=== PATIENT | female | born 1975 | race African-American/Black ===

== ENCOUNTER 2023-10-28 15:25 | Emergency (ER) | payer MEDICAID, SELFPAY ==
--- NOTE | ~2023-10-28 | US_ITS ---
EXAMINATION: US PELVIS CLINICAL INFORMATION: Heavy vaginal bleeding COMPARISON: None available. TECHNIQUE: Ultrasound of the pelvis is performed using both transabdominal and transvaginal transducers along with Doppler. Transvaginal imaging is performed due to inadequate visualization transabdominally. FINDINGS: Uterus: The uterus is anteverted and measures 9.2 x 6.1 x 7.0 cm. Parenchyma is diffusely heterogeneous. Endometrium is difficult to visualize due to the heterogeneous appearance of the uterus. Questionable area measuring 9 mm with some small amount of fluid within the endometrial canal There is a subserosal hypoechoic fibroid in the posterior body measuring 1.3 x 1.1 x 1.7 cm. Adnexa: Both ovaries are visualized. There is normal color flow to the adnexa. There is no ovarian torsion. There is no pelvic ascites or fluid collection. Right ovary measures 4.0 x 1.7 x 1.6 cm. There is a small anechoic cyst/dominant follicle measuring 2.0 x 1.1 x 1.6 cm Left ovary measures 2.3 x 1.3 x 1.6 cm. Visualization is limited. US/US pelvic and transvaginal IMPRESSION: 1. Diffusely heterogeneous uterus with a small subserosal fibroid. Endometrium is difficult to visualize due to the heterogeneous appearance of the uterus. Cannot exclude underlying adenomyosis. Questionable endometrial area measuring 9 mm with some small amount of fluid within the endometrial canal. 2. Right ovary is normal. Left ovary is limited in visualization.
--- NOTE | 2023-10-28 15:41 | ED.FEMALEGU ---
HPI - Female Genitourinary General Chief complaint: Vaginal Bleeding Stated complaint: heavy vaginal bleeding Time Seen by Provider: 10/28/23 19:39 Related Data Previous Rx's ?Medication ?Instructions ?Recorded medroxyprogesterone 10 mg tablet 10 mg PO DAILY #30 tabs 10/28/23 (Provera) Allergies Allergy/AdvReac Type Severity Reaction Status Date / Time latex Allergy Intermediate Rash Verified 10/28/23 15:44 [facility] Social History Social History Smoked in Last 30 Days: No Use of substances other than those prescribed or required for medical reasons: Yes Substance Use Type: Marijuana Substance Use Frequency: Chronic Longstanding Advance Directives: No Advance Directives Information Provided: Yes Do you have a plan to hurt others: No Plan Patient : No Physical Exam Vital Signs: Vital Signs: Last Vital Signs Temp 97.9 F 10/28/23 20:00 Pulse 67 10/28/23 20:00 Resp 18 10/28/23 20:00 BP 105/60 10/28/23 20:00 Pulse Ox 98 10/28/23 20:00 O2 Del Method Room Air 10/28/23 20:00 BMI result Body Mass Index 21.8 Course Course Course Narrative: This is a Rapid Medical Examination (RME) performed by Jimmy Luis PA-C in triage. Full HPI, ROS, assessment and treatment plan per primary provider in the Main ED. 48 yo female presents to the ER for evaluation of heavy vaginal bleeding that started 8/3. Her menstrual cycle usually lasts 7 days but it has gotten worse and she is now on day 11.. Going through 4-5 pads per day. Having regular menstrual cramping, no significant pain. No dizziness, weakness, SOB, or chest pain. From [place], here visiting. VS stable in triage. Plan: labs, imaging deferred for now given no pain or symptoms of acute blood loss Reevaluation(s) Reevaluation #1: Dr. Sherman is the primary provider for this encounter, see his note for full assessment and plan Medical Decision Making Lab Data 10/28/23 16:22 10/28/23 16:22 Labs: Lab Results 10/28/23 10/28/23 Range/Units 16:22 19:42 WBC 4.8 (4.8-10.8) X10*3/uL RBC 3.49 L (4.20-5.50) X10*6/uL Hgb 12.3 (12.0-16.0) g/dl Hct 35.4 L (37.0-47.0) % MCV 101.4 H (80.0-98.0) fL MCH 35.2 H (27.0-33.0) pg MCHC 34.7 (31.0-35.0) g/dl RDW 14.6 (11.0-16.0) % Plt Count 141 L (160-400) X10*3/uL MPV 10.6 (9.4-12.3) fL Immature Gran % (Auto) 0.2 (0.0-0.4) % Neut % (Auto) 47.9 (45-73) % Lymph % (Auto) 41.6 H (20-40) % [place] % (Auto) 7.6 (2-11) % Eos % (Auto) 2.3 (0-4) % Baso % (Auto) 0.4 (0-2) % Lymph # (Auto) 2.0 (1.2-4.9) X10*3/uL [place] # (Auto) 0.4 (0.1-1.2) X10*3/uL Eos # (Auto) 0.1 (0.0-0.4) X10*3/uL Baso # (Auto) 0.0 (0.0-0.2) X10*3/uL Abs Immat Gran (auto) 0.01 (0.00-0.03) X10*3/uL Absolute Neuts (auto) 2.3 (2.0-8.3) x10*3/uL Absolute Nucleated RBC 0.000 (0.0-0.012) X10*3/uL Nucleated RBC % (auto) 0.0 (0.0-0.2) /100WBC Smear Tech's Comments VERIFIED Sodium 137 (135-145) mmol/L Potassium 4.4 (3.3-5.1) mmol/L Chloride 110 H (96-108) mmol/L Carbon Dioxide 18 L (22-29) mmol/L Anion Gap 13 (12-20) BUN 11 (9-16) mg/dL Creatinine 0.77 (0.5-1.4) mg/dL Estim Creat Clear Calc 69.9 Estimated GFR > 60 Random Glucose 81 (60-115) mg/dL Calcium 9.7 (8.4-10.2) mg/dL Magnesium 1.9 (1.6-2.6) mg/dL Total Bilirubin 0.6 (0.0-1.0) mg/dL Direct Bilirubin 0.2 (0.0-0.5) mg/dL AST 18 (5-31) U/L ALT 10 (0-31) U/L Alkaline Phosphatase 51 (39-117) U/L Total Protein 7.6 (6.5-8.0) g/dL Albumin 4.3 (3.5-5.0) g/dL Urine Color Yellow Urine Appearance Clear Urine pH 5.5 (5.0-9.0) Ur Specific [place] 1.020 (1.005-1.025) Urine Protein Trace (Neg-Trace) mg/dL Urine Glucose (UA) Negative (Negative) mg/dL Urine Ketones 15 (Negative) mg/dL Urine Blood Large (3+) H (Negative) Urine Nitrite Negative (Negative) Ur Leukocyte Esterase Trace H (Negative) Urine RBC >20 H (0-2) /HPF Urine WBC 0-5 (0-5) /HPF Ur Squamous Epith Cells 0-2 (0-2) /HPF Urine Bacteria Trace (None Seen) Hyaline Casts 0-2 (0-2) /LPF Urine Test NEGATIVE (NEGATIVE) Discharge Plan Discharge Clinical Impression: Abnormal uterine bleeding (AUB) Patient Disposition: Home, Self-Care Instructions: Dysfunctional Uterine Bleeding (ED) Additional Instructions: Follow-up either with Dr. Agarwal at [facility] or with you on OBGYN when you go back home. We will give him the name of Dr. Agarwal return if you are worse Prescriptions: New medroxyprogesterone [Provera] 10 mg tablet 10 mg PO DAILY Qty: 30 0RF Referrals: Stephon Agarwal MD [Physician] - 2 days Print Language: Kazakh
[2023-10-28 15:42] VITALS: BP 105/60; PULSE 67; RESP 18; TEMP 36.6; O2SAT 98; BMI 21.8
[2023-10-28 16:30] LABS: Hemoglobin 12.3 g/dl (12.0-16.0); Imm Gran Abs Auto 0.01 X10*3/uL (0.00-0.03); Imm Gran Pct Auto 0.2 % (0.0-0.4); MANUAL DIFF FLAG SCAN; Mean Platelet Volume 10.6 fL (9.4-12.3); Monocytes Absolute Auto 0.4 X10*3/uL (0.1-1.2); PLT CLUMP 1; SCAN SMEAR FLAG 1
[2023-10-28 16:31] LABS: Basophils Percent Auto 0.4 % (0-2); Eosinophils Absolute Auto 0.1 X10*3/uL (0.0-0.4); Eosinophils Percent Auto 2.3 % (0-4); Hematocrit 35.4 % (37.0-47.0); Lymphocytes Percent Auto 41.6 % (20-40); Mean Corpuscular HGB Conc 34.7 g/dl (31.0-35.0); Mean Corpuscular Hemoglobin 35.2 pg (27.0-33.0); Mean Corpuscular Volume 101.4 fL (80.0-98.0); Monocytes Percent Auto 7.6 % (2-11); Neutrophils Absolute Auto 2.3 x10*3/uL (2.0-8.3); Neutrophils Percent Auto 47.9 % (45-73); Red Blood Count 3.49 X10*6/uL (4.20-5.50); Red Cell Distribution Width 14.6 % (11.0-16.0)
[2023-10-28 16:57] LABS: Platelet Count 141 X10*3/uL (160-400); SLIDE REVIEW VERIFIED; White Blood Count 4.8 X10*3/uL (4.8-10.8)
[2023-10-28 17:01] LABS: Alanine Aminotransferase 10 U/L (0-31); Albumin Level 4.3 g/dL (3.5-5.0); Alkaline Phosphatase 51 U/L (39-117); Anion Gap 13 (12-20); Aspartate Amino Transferase 18 U/L (5-31); Bilirubin Direct 0.2 mg/dL (0.0-0.5); Bilirubin Total 0.6 mg/dL (0.0-1.0); Blood Urea Nitrogen 11 mg/dL (9-16); Calcium 9.7 mg/dL (8.4-10.2); Carbon Dioxide 18 mmol/L (22-29); Chloride 110 mmol/L (96-108); Creatinine Clr Calc Pharmacy 69.9; Estimated Glomerular Filt Rate > 60; Glucose Random 81 mg/dL (60-115); Magnesium 1.9 mg/dL (1.6-2.6); Potassium 4.4 mmol/L (3.3-5.1); Sodium 137 mmol/L (135-145); Total Protein 7.6 g/dL (6.5-8.0)
[2023-10-28 19:53] LABS: Appearance Urine Clear; Color Urine Yellow; Glucose Urine UA Negative (Negative); Leukocyte Esterase Urine Trace (Negative); Nitrite Urine Negative (Negative); PH 5.5 (5.0-9.0); UMIC TRIGGER UACC YES; Urine Blood Large (3+) (Negative); Urine Ketones 15 mg/dL (Negative); Urine Pregnancy NEGATIVE (NEGATIVE); Urine Protein Trace mg/dL (Neg-Trace)
[2023-10-28 19:54] LABS: UPreg QC Valid YES
[2023-10-28 19:55] LABS: Bacteria Urine Trace (None Seen); Hyaline Casts Urine 0-2 /LPF (0-2); RBC Urine >20 /HPF (0-2); Squamous Epithelial Cell Urine 0-2 /HPF (0-2); WBC Urine 0-5 /HPF (0-5)
--- NOTE | 2023-10-28 19:55 | ED_ITS ---
HPI - Female Genitourinary General Chief complaint: Vaginal Bleeding Stated complaint: heavy vaginal bleeding Time Seen by Provider: 10/28/23 19:39 Source: patient Mode of arrival: ambulatory Limitations: no limitations History of Present Illness HPI Narrative: This is a 48 years old patient presented to emergency department complaining of heavy vaginal bleeding, she states she has been bleeding for about 10 days. She is ambulatory to the emergency department she arrived in not acute distress with stable vital signs MD elicited complaint: vaginal bleeding Onset (ago): day(s) (10) Severity: moderate Consistency: constant Vaginal discharge: none Vaginal bleeding: moderate Related Data Previous Rx's ?Medication ?Instructions ?Recorded medroxyprogesterone 10 mg tablet 10 mg PO DAILY #30 tabs 10/28/23 (Provera) Allergies Allergy/AdvReac Type Severity Reaction Status Date / Time latex Allergy Intermediate Rash Verified 10/28/23 15:44 Review of Systems 2 Constitutional: Constitutional: Reports no additional constitutional complaints Respiratory: Respiratory: Reports no additional respiratory complaints Genitourinary: Genitourinary: Reports abnormal vaginal bleeding [facility] Past Medical History [facility] Narrative: She denies any major medical problem Social History Social History Smoked in Last 30 Days: No Use of substances other than those prescribed or required for medical reasons: Yes Substance Use Type: Marijuana Substance Use Frequency: Chronic Longstanding Advance Directives: No Advance Directives Information Provided: Yes Do you have a plan to hurt others: No Plan Patient : No Physical Exam 2 Vital Signs: Vital Signs: Last Vital Signs Temp 97.9 F 10/28/23 15:42 Pulse 67 10/28/23 15:42 Resp 18 10/28/23 15:42 BP 105/60 10/28/23 15:42 Pulse Ox 98 10/28/23 15:42 O2 Del Method Room Air 10/28/23 15:42 BMI result Body Mass Index 21.8 Const: General: cooperative Nutritional Appearance: average body habitus Orientation/consciousness: oriented to person and patient oriented x3 L imitations: no limitations HEENT: Head: Yes normal to inspection Throat: Yes posterior oropharynx normal Neck: Neck: Yes normal visual inspection Chest: Chest palpation & inspection: normal inspection of the chest Resp: Effort & Inspection: normal respiratory effort Cardio: Jugular venous distension: no JVD Rate: regular rate Rhythm: r egular rhythm GI: Inspection: Yes normal to inspection Palpation (GI): Soft to palpation, not firm and nontender : External Female Exam: normal external appearance Speculum Exam - Vagina: normal appearance of the vagina Speculum Exam - Cervix: normal appearance of the cervix and Other cervical findings present (minimal bleeding noted) Skin: General skin exam: no rashes or lesions noted, elasticity normal and turgor normal Lesions: no lesions Rashes: no rashes Neuro: General: oriented to person and patient oriented x3 Course Reevaluation(s) Reevaluation #1: Patient presented with dysfunctional uterine bleeding hCG is negative hemoglobin and crit normal. I discussed the case with the industrial training specialist on-call Dr. Agarwal it is reasonable to discharge the patient home with Provera 10 mg daily for 30 days. She has no contraindication she has no history of breast cancer or history of DVT. She understands she will need to follow-up for possible uterine biopsy and she can follow up either with Dr. Agarwal be or with her own OBGYN Time: 20:06 Medical Decision Making Medical Decision Making [facility] Narrative: Patient presented with vaginal bleeding will check CBC, will perform pelvic exam Differential Diagnosis Differential Diagnoses: The differential diagnosis associated with the presentation includes Uterine cancer/dysfunctional uterine bleeding Consult Healthcare Provider Management of the patient was discussed with: Scientific Recruiter Dr Alicia Lab Data [facility] Lab Attestation statement: I reviewed the patient's lab results. 10/28/23 16:22 10/28/23 16:22 Labs: Lab Results 10/28/23 10/28/23 Range/Units 16:22 19:42 WBC 4.8 (4.8-10.8) X10*3/uL RBC 3.49 L (4.20-5.50) X10*6/uL Hgb 12.3 (12.0-16.0) g/dl Hct 35.4 L (37.0-47.0) % MCV 101.4 H (80.0-98.0) fL MCH 35.2 H (27.0-33.0) pg MCHC 34.7 (31.0-35.0) g/dl RDW 14.6 (11.0-16.0) % Plt Count 141 L (160-400) X10*3/uL MPV 10.6 (9.4-12.3) fL Immature Gran % (Auto) 0.2 (0.0-0.4) % Neut % (Auto) 47.9 (45-73) % Lymph % (Auto) 41.6 H (20-40) % [place] % (Auto) 7.6 (2-11) % Eos % (Auto) 2.3 (0-4) % Baso % (Auto) 0.4 (0-2) % Lymph # (Auto) 2.0 (1.2-4.9) X10*3/uL [place] # (Auto) 0.4 (0.1-1.2) X10*3/uL Eos # (Auto) 0.1 (0.0-0.4) X10*3/uL Baso # (Auto) 0.0 (0.0-0.2) X10*3/uL Abs Immat Gran (auto) 0.01 (0.00-0.03) X10*3/uL Absolute Neuts (auto) 2.3 (2.0-8.3) x10*3/uL Absolute Nucleated RBC 0.000 (0.0-0.012) X10*3/uL Nucleated RBC % (auto) 0.0 (0.0-0.2) /100WBC Smear Tech's Comments VERIFIED Sodium 137 (135-145) mmol/L Potassium 4.4 (3.3-5.1) mmol/L Chloride 110 H (96-108) mmol/L Carbon Dioxide 18 L (22-29) mmol/L Anion Gap 13 (12-20) BUN 11 (9-16) mg/dL Creatinine 0.77 (0.5-1.4) mg/dL Estim Creat Clear Calc 69.9 Estimated GFR > 60 Random Glucose 81 (60-115) mg/dL Calcium 9.7 (8.4-10.2) mg/dL Magnesium 1.9 (1.6-2.6) mg/dL Total Bilirubin 0.6 (0.0-1.0) mg/dL Direct Bilirubin 0.2 (0.0-0.5) mg/dL AST 18 (5-31) U/L ALT 10 (0-31) U/L Alkaline Phosphatase 51 (39-117) U/L Total Protein 7.6 (6.5-8.0) g/dL Albumin 4.3 (3.5-5.0) g/dL Urine Color Yellow Urine Appearance Clear Urine pH 5.5 (5.0-9.0) Ur Specific [place] 1.020 (1.005-1.025) Urine Protein Trace (Neg-Trace) mg/dL Urine Glucose (UA) Negative (Negative) mg/dL Urine Ketones 15 (Negative) mg/dL Urine Blood Large (3+) H (Negative) Urine Nitrite Negative (Negative) Ur Leukocyte Esterase Trace H (Negative) Urine RBC >20 H (0-2) /HPF Urine WBC 0-5 (0-5) /HPF Ur Squamous Epith Cells 0-2 (0-2) /HPF Urine Bacteria Trace (None Seen) Hyaline Casts 0-2 (0-2) /LPF Urine Test NEGATIVE (NEGATIVE) Radiology Impression Discussion of test interpretation with radiology: I have reviewed the radiologist's reading. Discharge Plan Discharge Clinical Impression: Abnormal uterine bleeding (AUB) Patient Disposition: Home, Self-Care Instructions: Dysfunctional Uterine Bleeding (ED) Additional Instructions: Follow-up either with Dr[facility] Ag[facility] at [facility] or with you on OBGYN when you go back home. We will give him the name of Dr. Agarwal return if you are worse Prescriptions: New medroxyprogesterone [Provera] 10 mg tablet 10 mg PO DAILY Qty: 30 0RF Referrals: Stephon Agarwal MD [Physician] - 2 days Print Language: Kittitian
--- NOTE | 2023-10-28 19:55 | PM.GYNCN ---
DIESEL INSPECTOR - CN: HPI Data of Consult Consult date: 10/28/23 Primary Care Provider: Tuan Espana MD Consult Narrative Narrative: I was consulted on Belén Vazquez is a 48 year old female with presenting to emergency complaining of heavy vaginal bleeding of 10 days duration associated with passage of blood clots. cc:: CC: OB [facility] Social History Social History Smoked in Last 30 Days: No Use of substances other than those prescribed or required for medical reasons: Yes Substance Use Type: Marijuana Substance Use Frequency: Chronic Longstanding Advance Directives: No Advance Directives Information Provided: Yes Do you have a plan to hurt others: No Plan Patient : No Meds Allergies Allergy/AdvReac Type Severity Reaction Status Date / Time latex Allergy Intermediate Rash Verified 10/28/23 15:44 DIESEL INSPECTOR Physical Exam Vitals Vital signs: Temp Pulse Resp BP Pulse Ox O2 Del Method 97.9 F 67 18 105/60 98 Room Air 10/28/23 15:42 10/28/23 15:42 10/28/23 15:42 10/28/23 15:42 10/28/23 15:42 10/28/23 15:42 BMI result Body Mass Index 21.8 DIESEL INSPECTOR - Results Labs 10/28/23 16:22 10/28/23 16:22 Labs: Short CBC 10/28/23 Range/Units 16:22 WBC 4.8 (4.8-10.8) X10*3/uL Hgb 12.3 (12.0-16.0) g/dl Hct 35.4 L (37.0-47.0) % Plt Count 141 L (160-400) X10*3/uL BMP 10/28/23 16:22 Sodium 137 Potassium 4.4 Chloride 110 H Carbon Dioxide 18 L BUN 11 Creatinine 0.77 Calcium 9.7 Liver Function 10/28/23 Range/Units 16:22 Total Bilirubin 0.6 (0.0-1.0) mg/dL Direct Bilirubin 0.2 (0.0-0.5) mg/dL AST 18 (5-31) U/L ALT 10 (0-31) U/L Alkaline Phosphatase 51 (39-117) U/L Albumin 4.3 (3.5-5.0) g/dL Urine 10/28/23 Range/Units 19:42 Urine Color Yellow Urine Appearance Clear Urine pH 5.5 (5.0-9.0) Ur Specific [place] 1.020 (1.005-1.025) Urine Protein Trace (Neg-Trace) mg/dL Urine Glucose (UA) Negative (Negative) mg/dL Urine Test NEGATIVE (NEGATIVE) Imaging US - abdomen: Radiologist's impression: ITS Impressions Pelvic/Transvag US 10/28/23 17:42 IMPRESSION: 1. Diffusely heterogeneous uterus with a small subserosal fibroid. Endometrium is difficult to visualize due to the heterogeneous appearance of the uterus. Cannot exclude underlying adenomyosis. Questionable endometrial area measuring 9 mm with some small amount of fluid within the endometrial canal. 2. Right ovary is normal. Left ovary is limited in visualization. Assessment and Plan (1) Abnormal uterine bleeding (AUB): Status: Acute Recommended to Dr. Sherman the following: Make sure Urine test is negative and perform a pelvic exam to rule out any abnormalities /leions and/or evidence of active bleeding. If the patient does not have contraindication to progesterone treatment (history of thrombosis, breast malignancies, ...) The patient is to be started on Provera 10 mg p.o. q.d. The patient will require a close follow-up with her outpatient OBGYN for hysteroscopy D&C possible polypectomy to rule out endometrial pathology including endometrial hyperplasia and/or malignancy and address the 9 mm abnormal finding of the endometrium by ultrasound; in addition the patient will need to have a discussion regarding options of treatment of uterine myoma. She instructions to be given to patient to come back to emergency room in case of persistence of her vaginal bleeding. I spent a total of 20 minute reviewing the chart, communicating to the emergency room provider and documenting in the medical record
[2023-10-28 20:00] VITALS: BP 105/60; PULSE 67; RESP 18; TEMP 36.6; O2SAT 98
[2023-10-28] MEDS: medroxyPROGESTERone Acetate 5 MG TABLET 10 MG PO (20:28)
[2023-10-28 20:30] VITALS: BP 105/60; PULSE 67; RESP 18; TEMP 36.6; O2SAT 98
== END 2023-10-28 20:31 | disposition home or self-care (01) ==
PROVIDERS: Physician Assistant; Emergency Provider Emergency Medicine; PCP Hospitalist
DX: N93.9 Abnormal uterine and vaginal bleeding, unspecified (principal)
CPT/HCPCS: 36415; 76830; 76856; 80048; 80076; 81001; 81025; 83735; 85025; 99284

== ENCOUNTER 2023-11-03 09:42 | Outpatient (AMB) | payer MEDICAID, SELFPAY ==
[2023-11-03 10:08] VITALS: BP 106/60; BMI 21.8
--- NOTE | 2023-11-03 10:08 | MHC.OFFVIS ---
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 Parenchyma is diffusely heterogeneous. Endometrium is difficult to visualize due to the heterogeneous appearance of the uterus. Questionable area measuring 9 mm with some small amount of fluid within the endometrial canal There is a subserosal hypoechoic fibroid in the posterior body measuring 1.3 x 1.1 x 1.7 cm. Adnexa: Both ovaries are visualized. There is normal color flow to the adnexa. There is no ovarian torsion. There is no pelvic ascites or fluid collection. Right ovary measures 4.0 x 1.7 x 1.6 cm. There is a small anechoic cyst/dominant follicle measuring 2.0 x 1.1 x 1.6 cm Left ovary measures 2.3 x 1.3 x 1.6 cm. Visualization is limited. The patient was started on Provera 10 mg p.o. q.d. to follow-up in an outpatient office. Since then has been doing well with no vaginal bleeding No recent screening mammogram No recent co testing? [facility] Medical History (Updated 11/03/23 @ 10:40 by Stephon Agarwal MD) Arthritis Degeneration of spine Family History (Updated 11/03/23 @ 10:12 by Stacey Wagner CMA) Mother Pre-diabetes Maternal Grandmother Diabetes Social History (Updated 11/03/23 @ 10:13 by Stacey Wagner CMA) Household Members: Family Housing: Apartment Alcohol intake: current Alcohol intake frequency: holidays/special occasions only Patient Tobacco Use Status: Never used Tobacco Substance Use Type: Marijuana Current occupational status: unemployed Sexually active: No Sexual orientation: Straight/Heterosexual Gender identity: Female Female Reproductive History Menstrual Date of last menstrual period: 10/19/23 Total pregnancies: 3 Full term: 2 Number of Living Children: 2 Review of Systems Const All systems reviewed & are unremarkable except as noted in HPI and below Card Reports as per HPI Resp Reports as per HPI GI Reports as per HPI and Reports no additional complaints Reports as per HPI Physical Exam Vital Signs: BMI result Body Mass Index 21.8 Const General: cooperative, healthy appearing and comfortable Chest Chest palpation & inspection: normal inspection of the chest and normal palpation of entire chest wall Breast/axilla inspection: normal inspection of the breasts and normal inspection of the axillae Breast/axilla palpation: normal palpation of the breasts, normal palpation of the axillae and no axillary lymphadenopathy Resp Effort & Inspection: normal respiratory effort Auscultation: clear to auscultation bilaterally Percussion: percussion normal Cardio Palpation: normal PMI Rate: regular rate Rhythm: regular rhythm Heart sounds: no murmurs and no rubs Peripheral pulses: Peripheral pulses 2+ throughout GI Inspection: Yes normal to inspection Palpation (GI): Soft to palpation, nontender, no guarding, not rigid and No hepatosplenomegaly present Percussion: Yes normal to percussion Auscultation: normal bowel sounds Rectal Exam - Female: deferred General: Yes bladder normal to palpation External Female Exam: No lesion Speculum Exam - Vagina: normal appearance of the vagina, normal palpation, normal vaginal discharge and not erythematous Speculum Exam - Cervix: normal appearance of the cervix and normal palpation Bimanual exam- vagina & uterus: normal bimanual exam, normal palpation, uterine size normal, bladder normal to palpation, consistency normal and normal palpation Bimanual Exam- Adnexa, other: normal adnexae, no masses and no tenderness Results AMB Test Urine AMB Test Urine Negative Last Edit by Stacey Wagner CMA on 11/03/23 10:16 Assessment & Plan Assessment & Plan (1) Abnormal uterine bleeding (AUB): Comment: ? 9 mm endometrial abn area Code(s): N93.9 - Abnormal uterine and vaginal bleeding, unspecified Category: Medical Plan: Mammogram ordered. Co testing done, GC and chlamydia taken CBC, TSH, FSH/LH, prolactin, HCG ordered. Discussed with the patient the different causes of abnormal bleeding including thyroid disorders, uterine and ovarian pathology, endometrial hyperplasia, carcinoma and other potential causes. Discussed with the patient the work up including CBC (to r/o anemia), TSH, FSH/LH, prolactin, pelvic Ultrasound. Recommended to the patient that the next step is an endometrial sampling via hysteroscopy D&C possible polypectomy versus endometrial biopsy to r/o endometrial pathology including hyperplasia or cancer. All the pros and cons risks and benefits of each approach were discussed with the patient, endometrial biopsy being less invasive, office procedure with less sensitivity and inability diagnose a polyp and removal versus hysteroscopy done under anesthesia more invasive more sensitive to endometrial cancer and possibility of diagnosing and endometrial polyp with the possibility of polypectomy. All questions were answered pt verbalized understanding and decided to proceed with hysteroscopy D&C possible polypectomy/myomectomy Discussed with the patient the procedure , all benefits and risks including but not limited to inability to complete the procedure , insufficient endometrial tissue for a complete evaluation of the endometrial cavity , bleeding, infection, possible need for blood transfusion with all its risk ( HIV,syphilis, Hepatitis, anaphylaxis shock, others..), injury to bladder, rectum, possible need for laparoscopy/laparotomy or hysterectomy. The patient verbalized understanding and signed the consent. Instructions given the patient to stay NPO after midnight the day prior to the procedure and to take only the specific medication (s) discussed the morning of the surgical procedure and to schedule a 2 week postoperative appointment Orders: Orders AMB HCG Urine Test Today Z32.02 - Encounter for test, result negative TSH reflex Free T4 Today N93.9 - Abnormal uterine and vaginal bleeding, unspecified Complete Blood Count no Diff Today N93.9 - Abnormal uterine and vaginal bleeding, unspecified MM tomosynthesis screening BI Today Z12.31 - Encounter for screening mammogram for malignant neoplasm of breast HCG Quantitative Today N93.9 - Abnormal uterine and vaginal bleeding, unspecified Prolactin Today N93.9 - Abnormal uterine and vaginal bleeding, unspecified Lutenizing Hormone Today N93.9 - Abnormal uterine and vaginal bleeding, unspecified Follicle Stimulating Hormone Today N93.9 - Abnormal uterine and vaginal bleeding, unspecified Coding Level of Care Code Est Pt Level 3 (82202) Diagnoses Abnormal uterine bleeding (AUB) N93.9
== END 2023-11-03 10:48 | disposition home or self-care (01) ==
PROVIDERS: PCP Hospitalist; Visit Provider Obstetrics & Gynecology
DX: N93.9 Abnormal uterine and vaginal bleeding, unspecified (principal); Z32.02 Encounter for pregnancy test, result negative
CPT/HCPCS: 99213

== ENCOUNTER 2023-11-03 09:42 | Outpatient (REF) | payer MEDICAID, SELFPAY ==
[2023-11-03 14:16] LABS: CT PCR NOT DETECTED (Not Detect.); NG PCR NOT DETECTED (Not Detect.)
[2023-11-06 12:29] LABS: HPV mRNA E6/E7 Not Detected (Not Detected)
== END 2023-11-03 09:43 | disposition home or self-care (01) ==
LOC: HO.LNP 09:42
PROVIDERS: PCP Hospitalist; Visit Provider Obstetrics & Gynecology
DX: N93.9 Abnormal uterine and vaginal bleeding, unspecified (principal); Z32.02 Encounter for pregnancy test, result negative; Z12.31 Encounter for screening mammogram for malignant neoplasm of breast
CPT/HCPCS: 81025; 87491; 87591; 87624; 88175; 99212

== ENCOUNTER 2024-01-27 08:17 | Emergency (ER) | payer MEDICAID, SELFPAY ==
--- NOTE | ~2024-01-27 | XR_ITS ---
EXAMINATION: XR HIP, RIGHT CLINICAL INFORMATION: Right hip pain COMPARISON: None available. TECHNIQUE: Two views of the right hip. AP pelvis. FINDINGS: No acute cortical disruption or malalignment. Bony pelvis is intact. No lytic or blastic lesions. Spina bifida occulta S1, congenital. XR/XR hip RT w PEL1V IMPRESSION: No acute fracture or dislocation, right hip. Electronically signed by: Yousif Vidal MD 01/27/2024 09:03 AM [facility]
[2024-01-27 08:34] VITALS: BP 137/62; PULSE 74; RESP 16; TEMP 36.3; O2SAT 100; BMI 24.5
--- NOTE | 2024-01-27 12:53 | ED_ITS ---
HPI - Extremity Injury (Lower) General Chief Complaint: Extremity Injury, Lower Stated Complaint: R hip pain Time Seen by Provider: 01/27/24 11:44 Source: patient and RN notes reviewed Mode of arrival: ambulatory Limitations: no limitations History of Present Illness ED Provider: Daniella Mercado PA-C HPI Narrative: This is a 48-year-old female who presents emergency department with complaints of right low back pain ongoing for several months worsening since yesterday. Patient states that she recently started a new job where she was sitting for a prolonged period of time yesterday she states when she went to get up she felt pain in her right low back radiating down into her right thigh. She states that she has a history of sciatica in symptoms feel similar. She states that when she awoke this morning when she was walking her pain worsened significantly. She denies any urinary or bowel incontinence or retention. No saddle anesthesia. She denies any recent heavy lifting or falls. No other complaints or concerns at this time. Type of Injury: blunt Place: home Severity: moderate Exacerbating factors: weight bearing, movement and palpation Other symptoms: none Related Data Previous Rx's ?Medication ?Instructions ?Recorded medroxyprogesterone 10 mg tablet 10 mg PO DAILY #30 tabs 10/28/23 (Provera) Allergies Allergy/AdvReac Type Severity Reaction Status Date / Time latex Allergy Intermediate Rash Verified 01/27/24 08:36 Review of Systems Review of Systems: Yes all other systems are reviewed and are negative Constitutional: Constitutional: Reports as per [facility] Past Medical History Medical History (Updated 01/27/24 @ 13:25 by JOI Hernandez) Arthritis Degeneration of spine Family History Family History (Updated 11/03/23 @ 10:12 by Stacey Wagner CMA) Mother Pre-diabetes Maternal Grandmother Diabetes Social History Social History (Updated 11/03/23 @ 10:13 by Stacey Wagner CMA) Household Members: Family Housing: Apartment Alcohol intake: current Alcohol intake frequency: holidays/special occasions only Patient Tobacco Use Status: Never used Tobacco Substance Use Type: Marijuana Advance Directives: No Advance Directives Information Provided: Yes Do you have a plan to hurt others: No Plan Current occupational status: unemployed Sexual orientation: Straight/Heterosexual Gender identity: Female Physical Exam Vital Signs: Vital Signs: Last Vital Signs Temp 97.3 F 01/27/24 08:34 Pulse 74 01/27/24 08:34 Resp 16 01/27/24 08:34 BP 137/62 01/27/24 08:34 Pulse Ox 100 01/27/24 08:34 O2 Del Method Room Air 01/27/24 08:34 BMI result Body Mass Index 24.5 Const: General: cooperative, comfortable and no acute distress Orientation/consciousness: patient oriented x3 Limitations: no limitations HEENT: Head: Yes normal to inspection, Yes normocephalic and Yes atraumatic Ears: hearing grossly normal bilaterally General nose exam: Normal external nose present Face and sinus: Yes normal facial exam Mouth: Normal oral and palatal mucosa present, oropharynx normal and moist mucous membranes Throat: Yes posterior oropharynx normal Eyes: General: appearance normal, both eyes and all related structures Eyelids: Yes eyelids normal Conjunctivae: conjunctivae normal Sclerae: sclerae normal Pupils: Equal, round and reactive pupils present EOM: EOMs intact bilaterally Neck: Neck: Yes normal visual inspection, Yes full ROM and Yes no lymphadenopathy Lymphatic: no lymphadenopathy noted Chest: Chest palpation & inspection: normal inspection of the chest Resp: Effort & Inspection: normal respiratory effort and able to speak in complete sentences Auscultation: clear to auscultation bilaterally, no crackles, no rales, no rhonchi and no wheezes Cardio: Rate: regular rate Rhythm: regular rhythm Heart sounds: S1 normal heart sound present and S2 normal heart sound present GI: Other: Abdomen is soft, nontender, nondistended Inspection: Yes normal to inspection Back/Spine/Pelvis: Other: Right low back with tenderness palpation in the SI joint region, she is ambulatory with steady gait. Strong DP pulse. DTRs are 2+ No midline spine tenderness. Skin: General skin exam: no rashes or lesions noted Trauma: no lacerations or abrasions Wounds: no wounds Neuro: General: patient oriented x3 and moves all extremities Cranial nerves: Yes Equal, round and reactive pupils present Extrem: General: Yes normal to inspection Right upper extremity: normal to inspection Left upper extremity: normal to inspection Right lower extremity: normal to inspection Left lower extremity: normal to inspection Medications Administered Discontinued Medications Generic Name Dose Route Start Last Admin Trade Name Freq PRN Reason Stop Dose Admin Ketorolac Tromethamine 30 mg 01/27/24 13:23 01/27/24 13:41 Ketorolac Tromethamine 30 Mg/Ml Vial IM 01/27/24 13:24 30 mg ONCE ONE Administration Medical Decision Making Medical Decision Making [facility] Narrative: This is a 48-year-old female who presents emergency department complaints of right low back pain. Arrival, vital signs within normal limits. She is ambulatory with steady gait no history of IVDA. History of sciatica on symptoms feel similar. Pain starts in right low back and radiates down into the right leg. Symptoms concerning for lumbar radiculopathy. Will treat with anti- inflammatories. This patient presents with back pain most consistent with lumbar radiculopathy. Differential diagnoses includes lumbago versus musculoskeletal spasm / strain versus sciatica. No back pain red flags on history or physical. Presentation not consistent with malignancy (lack of history of malignancy, lack of B symptoms), fracture (no trauma, no bony tenderness to palpation), cauda equina syndrome (no bowel or urinary incontinence/retention, no saddle anesthesia, no distal weakness), pulmonary embolism, renal colic, pyelonephritis (afebrile, no CVAT, no urinary symptoms). Differential Diagnosis Differential Diagnoses: The differential diagnosis associated with the presentation includes See above Radiology Impression Discussion of test interpretation with radiology: I have reviewed the radiologist's reading. Radiologist Impression: XR/XR hip RT w PEL1V IMPRESSION: No acute fracture or dislocation, right hip. Electronically signed by: Yousif Vidal MD 01/27/2024 09:03 AM [facility] Dictated By: Yousif Burns MD Discharge Plan Discharge Clinical Impression: Lumbar radiculopathy, right Patient Disposition: Home, Self-Care Instructions: Lumbar Radiculopathy (ED) Additional Instructions: You were seen in the emergency department due to right low back pain. Your x-ray does not show any bony abnormalities. You likely have something called sciatica or lumbar radiculopathy. This is caused by inflammation at times compression of the nerve root. I am treating you with a course of nonsteroidal medications, muscle relaxants, and lidocaine patches. Please be advised that Flexeril can cause drowsiness, do not drink alcohol or drive while taking this medication. If any new or worsening symptoms occur including but not limited to numbness and tingling into your groin, loss of control or your bowel or bladder, please seek emergent care Follow-up with the primary care physician. Personal primary care [address] [place] [address] Prescriptions: No Action medroxyprogesterone [Provera] 10 mg tablet 10 mg PO DAILY Qty: 30 0RF Referrals: [place],On License Of [facility] [Physician] - Print Language: Croatian
[2024-01-27] MEDS: Ketorolac Tromethamine 30 MG/ML VIAL IM (13:41)
[2024-01-27 14:16] VITALS: BP 137/62; PULSE 74; RESP 16; TEMP 36.3; O2SAT 100
== END 2024-01-27 14:17 | disposition home or self-care (01) ==
PROVIDERS: Emergency Provider Emergency Medicine
DX: M54.16 Radiculopathy, lumbar region (principal); M54.50 Low back pain, unspecified; M79.604 Pain in right leg; M25.551 Pain in right hip
CPT/HCPCS: 73502; 96372; 99283; 99284; J1885

== ENCOUNTER → 2024-01-27 08:50 | Outpatient (BNV) | payer MEDICAID, SELFPAY | PROVIDERS: Visit Provider Radiology Diagnostic Radiology | DX: M25.551 Pain in right hip (principal) | CPT/HCPCS: 73502 ==

== ENCOUNTER 2024-01-29 21:06 | Emergency (ER) | payer MEDICAID, SELFPAY ==
[2024-01-29 21:13] VITALS: BP 130/75; PULSE 81; RESP 20; TEMP 36.3; O2SAT 99; BMI 24.1
[2024-01-30 01:05] VITALS: BP 118/56; PULSE 74; RESP 16; TEMP 36.7; O2SAT 98
--- NOTE | 2024-01-30 01:27 | ED.GENADULT ---
HPI - General Adult General Chief complaint: Skin/Abscess/Foreign Body Stated complaint: rash on legs Time Seen by Provider: 01/30/24 01:03 Source: patient, RN notes reviewed and old records reviewed Mode of arrival: ambulatory Limitations: no limitations History of Present Illness ED Provider: Harman SKAGGS narrative: 48-year-old female presents for evaluation of a rash on her legs. Patient reports her symptoms started 2 days ago. She was seen here recently for sciatica and given injection of Toradol and lidocaine patches. She reports her symptoms started the following night after using these medications Her rash got worse this morning. She states that the rash was to her inner thighs. There were some raised bumps that have since improved and on a longer raise pain The rash was very itchy. It is not painful Denies any new soaps, lotions, detergents. She has no other complaints or concerns at this time Related Data Previous Rx's ?Medication ?Instructions ?Recorded medroxyprogesterone 10 mg tablet 10 mg PO DAILY #30 tabs 10/28/23 (Provera) acetaminophen 500 mg tablet 500 mg PO Q6H PRN pain #30 tabs 01/27/24 (Tylenol Extra Strength) cyclobenzaprine 10 mg tablet 10 mg PO TID #10 tabs 01/27/24 ibuprofen 600 mg tablet 600 mg PO Q6H PRN pain #30 tabs 01/27/24 lidocaine 4 % topical patch 1 patch topical DAILY #30 ea 01/27/24 (Aspercreme (lidocaine)) diphenhydramine HCl 25 mg capsule 25 mg PO Q4-6H PRN itching #20 caps 01/30/24 (Aler-Cap) hydrocortisone 2.5 % topical cream 1 appl topical BID 1 week #28 grams 01/30/24 prednisone 20 mg tablet 40 mg (2 x 20 mg) PO DAILY #8 tabs 01/30/24 Allergies Allergy/AdvReac Type Severity Reaction Status Date / Time latex Allergy Intermediate Rash Verified 01/29/24 21:16 Review of Systems Constitutional: Constitutional: Denies body ache(s), Denies chills, Denies fever(s) and Denies headache(s) Eyes: Eyes: Denies blurry vision ENT: Denies headache(s), Denies sore throat, Denies throat swelling and Denies tongue swelling Cardiovascular: Cardiovascular: Denies chest pain, Denies chest pain at rest and Denies dyspnea Respiratory: Respiratory: Denies cough and Denies dyspnea Gastrointestinal: Gastrointestinal: Denies abdominal pain, Denies nausea and Denies vomiting Musculoskeletal: Musculoskeletal: Denies back pain and Denies stiffness Integumentary/Breasts: Skin/Breast: Reports pruritus, Reports erythema, Reports rash and Denies wounds Neurologic: Denies headache(s) Allergic/Immunologic: Allergic/Immunologic: Denies throat swelling and Denies tongue swelling [facility] Past Medical History Medical History (Updated 01/30/24 @ 01:28 by Miguel Hammer) Arthritis Degeneration of spine Family History Family History (Updated 11/03/23 @ 10:12 by Stacey Wagner CMA) Mother Pre-diabetes Maternal Grandmother Diabetes Social History Social History (Updated 11/03/23 @ 10:13 by Stacey Wagner CMA) Household Members: Family Housing: Apartment Alcohol intake: current Alcohol intake frequency: holidays/special occasions only Patient Tobacco Use Status: Never used Tobacco Smoked in Last 30 Days: No Use of substances other than those prescribed or required for medical reasons: Yes Substance Use Type: Marijuana Substance Use Frequency: Occasionally Advance Directives: No Patient : No Current occupational status: unemployed Sexual orientation: Straight/Heterosexual Gender identity: Female Physical Exam ED Vital Signs: Vital Signs - 24 hr 01/29/24 21:13 01/30/24 01:05 01/30/24 01:45 Temperature 97.3 F 98.0 F 98.0 F Pulse Rate 81 74 74 Respiratory Rate 20 16 16 Blood Pressure 130/75 118/56 L 118/56 L Pulse Oximetry 99 98 98 Oxygen Delivery Method Room Air Room Air Room Air BMI result Body Mass Index 24.1 Const General: healthy appearing, comfortable, no acute distress, alert and awake Nutritional Appearance: well nourished Orientation/consciousness: patient oriented x3 HENMT Head: Yes normocephalic and Yes atraumatic Eyes Eyelids: Yes eyelids normal Conjunctivae: conjunctivae normal Sclerae: sclerae normal Corneas: corneas normal Pupils: Equal, round and reactive pupils present EOM: EOMs intact bilaterally Neck Neck: Yes full ROM Resp Effort & Inspection: normal respiratory effort, able to speak in complete sentences and not labored Cardio Rate: regular rate Rhythm: regular rhythm GI Inspection: No distended Palpation (GI): Soft to palpation, not firm, nontender, no guarding and not rigid Skin Other: The patient has a mildly erythematous rash to the bilateral upper inner thighs. There are some papillary regions, but mostly a fly rash. The patient has very minor excoriation menard. There is no rash elsewhere on her body other than her inner thighs. General skin exam: elasticity normal Neuro General: patient oriented x3 Cranial nerves: Yes Equal, round and reactive pupils present and Yes Bilaterally intact EOM present Cognition (Neuro): normal cognition Extrem Other: Moving all extremities well without any obvious deformities Medications Administered Discontinued Medications Generic Name Dose Route Start Last Admin Trade Name Freq PRN Reason Stop Dose Admin Prednisone 40 mg 01/30/24 01:27 01/30/24 01:42 Prednisone 20 Mg Tablet PO 01/30/24 01:28 40 mg ONCE ONE Administration Medical Decision Making Medical Decision Making MDM Narrative: 48-year-old female presents for evaluation of rash to her inner thighs. This is most consistent with an allergic reaction. She was given new medications a few days ago and developed a rash about 24 hours afterwards. She describes the rash as itchy and painful. She has no fever. It is highly unlikely to have bilateral cellulitis of the legs and a healthy female. We will treat as an allergic reaction, she was given return precautions. The patient was provided with information on where to obtain a primary doctor Differential Diagnosis Differential Diagnoses: The differential diagnosis associated with the presentation includes Acute dermatitis Allergic reaction Eczema Cellulitis less likely Discharge Plan Discharge Clinical Impression: Acute dermatitis Patient Disposition: Home, Self-Care Instructions: Dermatitis (ED) Additional Instructions: Your symptoms are most consistent with an allergic reaction type rash. Take Benadryl 25 mg every 4-6 hours as needed for itching and rash. Take prednisone 40 mg daily for the next 4 days. Use hydrocortisone cream twice daily for 1 week Follow-up with a primary doctor, return for new or worsening symptoms Prescriptions: New diphenhydramine HCl [Aler-Cap] 25 mg capsule 25 mg PO Q4-6H PRN (Reason: itching) Qty: 20 0RF prednisone 20 mg tablet 40 mg PO DAILY Qty: 8 0RF hydrocortisone 2.5 % cream 1 appl topical BID 7 Days Qty: 28 0RF No Action medroxyprogesterone [Provera] 10 mg tablet 10 mg PO DAILY Qty: 30 0RF cyclobenzaprine 10 mg tablet 10 mg PO TID Qty: 10 0RF lidocaine [Aspercreme (lidocaine)] 4 % adhesive patch,medicated 1 patch topical DAILY Qty: 30 0RF ibuprofen 600 mg tablet 600 mg PO Q6H PRN (Reason: pain) Qty: 30 0RF acetaminophen [Tylenol Extra Strength] 500 mg tablet 500 mg PO Q6H PRN (Reason: pain) Qty: 30 0RF Interventions: ED Discharge Assessment Last Done: 01/30/24 01:45 Discharge Date/Time: 01/30/24 01:47 Print Language: Liberian
[2024-01-30] MEDS: predniSONE 20 MG TABLET 40 MG PO (01:42)
[2024-01-30 01:45] VITALS: BP 118/56; PULSE 74; RESP 16; TEMP 36.7; O2SAT 98
== END 2024-01-30 01:47 | disposition home or self-care (01) ==
PROVIDERS: Emergency Provider Emergency Medicine Emergency Medical Services
DX: L30.9 Dermatitis, unspecified (principal); R21 Rash and other nonspecific skin eruption
CPT/HCPCS: 99283; 99284

== ENCOUNTER 2024-04-28 09:12 | Outpatient (REF) | payer MEDICAID, SELFPAY | END 2024-04-28 09:13 | disposition home or self-care (01) | LOC: HO.MAMMO 09:12 | PROVIDERS: Visit Provider Obstetrics & Gynecology | DX: Z12.31 Encounter for screening mammogram for malignant neoplasm of breast (principal) | CPT/HCPCS: 77063; 77067 ==

== ENCOUNTER → 2024-04-28 09:15 | Outpatient (BNV) | payer MEDICAID, SELFPAY | PROVIDERS: Visit Provider Internal Medicine | DX: Z12.31 Encounter for screening mammogram for malignant neoplasm of breast (principal) | CPT/HCPCS: 77063; 77067 ==